=== PATIENT | female | born 1975 | race African-American/Black ===

== ENCOUNTER 2023-05-21 23:08 | Emergency (ER) | payer OTHER, BC ==
[2023-05-21 23:17] VITALS: RESP 18; TEMP 98.9
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
[2023-05-22] MEDS ORDERED: IBUPROFEN 600 MG STARTER PACK 4 TAB BTL PO STA (00:47)
[2023-05-22] MEDS ORDERED: traMADol 50 MG STARTER PACK 3 TAB BTL PO STA (00:47)
[2023-05-22 01:22] VITALS: BP 166/106; PULSE 97
== END 2023-05-22 01:21 | disposition home or self-care (01) ==
LOC: EC 23:08
DX: S00.03XA Contusion of scalp, initial encounter (principal); S20.229A Contusion of unspecified back wall of thorax, initial encounter; V89.2XXA Person injured in unspecified motor-vehicle accident, traffic, initial encounter
CPT/HCPCS: 70450; 71045; 72125; 72170; 99285